=== PATIENT | female | born 1995 | race Caucasian/White ===

== ENCOUNTER 2022-04-15 07:40 | Inpatient (IN) | payer BC ==
[2022-04-15] MEDS: LACTATED RINGERS 1,000 ML IV SCH ×2 (07:50→17:29)
[2022-04-15] MEDS ORDERED: BENZOCAINE/MENTHOL SPRAY 1 GM/SPRAY AEROSOL TOPICAL PRN (08:14)
[2022-04-15] MEDS ORDERED: SIMETHICONE 80 MG CHEWABLE PO PRN (08:14)
[2022-04-15] MEDS ORDERED: diphenhydrAMINE 50 MG/ML 1 ML VIAL IVP PRN ×2 (08:14)
[2022-04-15] MEDS ORDERED: ACETAMINOPHEN TAB 325 MG TAB PO PRN (08:14)
[2022-04-15] MEDS ORDERED: HYDROCORTISONE 2.5% RECTAL CREAM 30 GM TUBE RECTAL PRN (08:14)
[2022-04-15] MEDS ORDERED: ZOLPIDEM 5 MG TAB PO PRN (08:14)
[2022-04-15] MEDS ORDERED: diphenhydrAMINE 50 MG CAP PO PRN (08:14)
[2022-04-15] MEDS ORDERED: diphenhydrAMINE 25 MG CAP PO PRN ×2 (08:14→11:35)
[2022-04-15] MEDS ORDERED: OXYTOCIN 30 UNITS/500 ML NS 30 UNIT in SALINE 1 500ML.BAG IV SCH (08:15)
[2022-04-15] MEDS ORDERED: LIDOCAINE 0.5% (PF) 5 MG/ML (50 ML SDV) SQ PRN (09:07)
--- NOTE | 2022-04-15 09:54 | P.HPOB ---
History of Present Illness H&P Date: 04/15/22 Chief Complaint: home stillborn delivery, perineal laceration the patient is a 27-year-old 1 para 0 who presents following home delivery at which time the baby was born without a pulse and resuscitative measures failed to 35 the . She did have care through a silk screen layout drafter and handed to low present. Reportedly, there were heart tones in the 120s up until just moments before delivery. The patient was questioned extensively regarding the possibility of gestational diabetes but had been checking her blood sugars at home with reportedly completely normal blood sugars. Upon presentation the hospital, there was concern for a perineal laceration. I arrived and examined the patient and initially was under the impression that she had a partial third-degree laceration. After was thought to be complete repair of the laceration, rectovaginal examination was performed and it was clearly demonstrated that this was an extensive fourth degree laceration with incomplete repair from the vaginal perspective. As a result, the patient will be taken to the operating room for better anesthesia and visualization for more complete repair. Obstetrical history: 1 para 0 with current statistics and outcomes as listed above, the infant was 8 pounds and 10 ounce female brought to the hospital without a pulse. Gynecologic history: Unremarkable with no history of any infections to include STDs. Review of Systems review of systems is confined to history of present illness. Medications and Allergies Home Medications Medication Instructions Recorded Confirmed Type No Known Home Medications 04/15/22 04/15/22 History Allergies Allergy/AdvReac Type Severity Reaction Status Date / Time No Known Allergies Allergy Verified 04/15/22 08:13 Exam Vital Signs Temp Pulse Resp BP Pulse Ox 04/15/22 07:50 97.0 F L 164 H 18 132/82 99 Intake and Output 04/14/22 04/15/22 04/15/22 22:59 06:59 14:59 Other: Weight 127.006 kg in general, this is a moderately obese white female in no acute distress. Her heart has a regular rhythm though she is somewhat tachycardic. Her lungs are clear to auscultation bilaterally in all cooper. Her abdomen is obese, nondistended, has normal active bowel sounds, soft, nontender aside from uterine fundus which is tonic and minimally tender below the umbilicus. Her 70s without any cyanosis, clubbing, or edema and are nontender to palpation bilaterally. Pelvic examination after repair confirms a fourth degree laceration which is incompletely repaired. Assessment and Plan (1) Fourth degree perineal laceration Current Visit: Yes Status: Acute Code(s): O70.3 - FOURTH DEGREE PERINEAL LACERATION DURING DELIVERY SNOMED Code(s): 059128876 Plan: in order to affect a more complete repair, the patient will be taken the operating room for repair under anesthesia were visualization will be more extensive. I have discussed with her and her significant other the risks of not proceeding in fairly rapid fashion which would primarily included fistula, and potential for infection. She has understood and agreed to proceed.
[2022-04-15] MEDS ORDERED: IV FLUID CONTINUATION 1,000 ML IV ONE (10:13)
[2022-04-15] MEDS ORDERED: fentaNYL (PF) 50 MCG/ML 2 ML AMP ONE (10:24)
[2022-04-15] MEDS ORDERED: ONDANSETRON 4 MG/2 ML VIAL ONE (10:24)
[2022-04-15] MEDS ORDERED: HYDROmorphone (PF) 1 MG/ML ONE (10:24)
[2022-04-15] MEDS ORDERED: PHENYLEPHRINE-0.9% NACL SYG 1,000 MCG/10 ML SYRINGE ONE (10:24)
[2022-04-15] MEDS ORDERED: PROPOFOL 10 MG/ML 20 ML VIAL IV ONE (10:24)
[2022-04-15] MEDS ORDERED: SUCCINYLCHOLINE CHLORIDE 200 MG/10 ML VIAL IV ONE (10:24)
[2022-04-15] MEDS ORDERED: LIDOCAINE 2% INJ 20 MG/ML (2 ML VIAL) ONE (10:24)
[2022-04-15] MEDS ORDERED: MIDAZOLAM 2 MG/2 ML VIAL ONE (10:24)
[2022-04-15] MEDS ORDERED: DEXAMETHASONE SOD PHOSPHATE 4 MG/ML 1 ML VIAL IVP ONE (10:25)
[2022-04-15] MEDS ORDERED: ONDANSETRON 4 MG/2 ML VIAL IVP ONE (10:25)
[2022-04-15] MEDS ORDERED: LACTATED RINGERS 1,000 ML IV ONE (10:53)
[2022-04-15 11:09] LABS: HCT 37.4 % (34.0-46.0); HGB 12.7 gm/dL (11.4-16.0); MCH 29.2 pg (25.0-35.0); MCHC 33.8 g/dL (31.0-37.0); MCV 86.3 fL (80.0-100.0); Mean Platelet Volume 10.6; Platelet Count 285 k/uL (150-450); RBC 4.34 m/uL (3.80-5.40); RDW 13.7 % (11.5-15.5); WBC 38.6 k/uL (3.8-10.6)
[2022-04-15] MEDS ORDERED: HYDROcodone/APAP 5-325MG 1 EACH TAB PO PRN (11:35)
[2022-04-15] MEDS ORDERED: HYDROcodone/APAP 7.5-325MG 1 EACH TAB PO PRN (11:35)
--- NOTE | 2022-04-15 11:43 | P.OP ---
Date of Procedure: 04/15/22 Preoperative Diagnosis: #1. Status post normal spontaneous vaginal delivery, stillbirth #2. Suspected extensive fourth degree perineal laceration Postoperative Diagnosis: same plus #3. third degree midline perineal laceration with a deep right lateral sulcus extension, no fourth degree perineal laceration identified Procedure(s) Performed: repair of vaginal and perineal lacerations. Anesthesia: GETA Surgeon: Henok Pabon Floor Worker Well Service #1: Tracy Alegria Estimated Blood Loss (ml): 10 IV fluids (ml): 700 Urine output (ml): 200 Pathology: none sent Condition: stable Disposition: PACU Operative Findings: under anesthesia and with adequate exposure, it became evident that there was not a fourth degree perineal laceration. Rectal examination confirmed the vaginal mucosa was intact and that in fact the laceration was a deep right lateral sulcus tear extending from a third degree laceration. Following repair, the external anal sphincter felt to be completely intact with the capsule reap proximated and the repair appeared complete and effective. Description of Procedure: the patient was prepped and draped in usual fashion after general endotracheal anesthesia was administered by the anesthesiologist. Examination under anesthesia demonstrate that there was in fact and not a defect to the rectal a rectal mucosa and that the laceration did indeed represent a third degree perineal laceration with an extension into the deep right lateral sulcus. The second-degree repair was cut with a suture scissors and the extent of the laceration and exposed. With good exposure, the lateral sulcus tear was closed from its apex with a running locking stitch of 3-0 chromic catgut to the hymeneal ring. From that point forward, the standard second-degree midline per ineal laceration was completed after having earlier reinforced the external anal sphincter with interrupted [id number] stitches of 2-0 Vicryl. After closure, the peritoneum appeared essentially normal and rectovaginal examination confirmed no involvement with the rectum. Estimated blood loss for the case was approximately 10 mL. There were no complications. All sponge, instrument, needle counts were correct. The patient tolerated the procedure well and proceeded to the recovery room in stable condition.
[2022-04-15 11:46] LABS: Band Neutrophils % 2 %; Monocytes # (M) 1.54 k/uL (0-1.0); Neutrophils % (M) 87 %; Nucleated Red Blood Cells 0 /100 WBC (0-0); Total Cells Counted 100
[2022-04-15] MEDS: IBUPROFEN 600 MG TAB PO PRN (17:31)
[2022-04-15] MEDS ORDERED: SENNOSIDES-DOCUSATE SODIUM 1 EACH TAB PO SCH (20:00)
[2022-04-16] MEDS: IBUPROFEN 600 MG TAB PO PRN (00:24)
[2022-04-16 04:02] VITALS: PULSE 108
[2022-04-16 06:54] LABS: Basophils # (A) 0.1 k/uL (0-0.2); Basophils % (A) 0 %; Eosinophils % (A) 0 %; HCT 28.2 % (34.0-46.0); Lymphocytes # (A) 3.2 k/uL (1.0-4.8); Lymphocytes % (A) 14 %; MCH 29.7 pg (25.0-35.0); MCV 87.2 fL (80.0-100.0); Mean Platelet Volume 9.4; Monocytes # (A) 0.8 k/uL (0-1.0); Monocytes % (A) 3 %; Neutrophils # (A) 18.9 k/uL (1.3-7.7); Neutrophils % (A) 82 %; Platelet Count 217 k/uL (150-450); RBC 3.23 m/uL (3.80-5.40); RDW 13.8 % (11.5-15.5); WBC 23.1 k/uL (3.8-10.6)
[2022-04-16 06:58] LABS: HGB 9.6 gm/dL (11.4-16.0)
--- NOTE | 2022-04-16 08:54 | P.DS ---
Providers Date of admission: 04/15/22 07:40 Expected date of discharge: 04/16/22 Attending physician: Aubrie Carcamo Primary care physician: Stated None - Discharge Diagnosis(es) (1) Fourth degree perineal laceration Current Visit: Yes Status: Acute Hospital Course: the patient is a 27-year-old 1 para 0 admitted at several days following her due date having had no local care, care only through a track layer head. She presented by ambulance after having a home delivery at which time the was stillborn. Both the infant and mother were transported to the hospital. I presented to examine the patient and found her to have a third degree perineal laceration was a large right sulcus tear which required proceeding to the operating room to actually close properly. This was carried out in an uncomplicated fashion. The entire time the patient was admitted, she was tachycardic between 120 and 140 beats per minute. Her white count drawn shortly after admission was noted to be 36,000. The decision was made to keep her in the hospital for observation for possible infection. She had no localizing signs and remained afebrile for the entirety of her admission. Repeat white blood cell count this morning has come down to 23,000 with continuing of no signs or localizing concerns for infection. As result, she was deemed stable for discharge and was discharged home to follow-up in my office in 2 weeks and 6 weeks. She is instructed to call for any significantly increased bleeding or foul-smelling lochia, significantly increased fever abdominal pain, perineal complaints, breast complaints, or anything else that concerned her. She was additionally instructed to have nothing in the vagina for at least 6 weeks time to include intercourse. She understood her instructions and agrees to follow up as noted above. Discharge medications included only [id number] analgesic pain medications. Maternal blood type is Rh+. Procedures: #1. Repair of third-degree perineal laceration with extension into the deep right vaginal sulcus Patient Condition at Discharge: Stable Plan - Discharge Summary New Discharge Prescriptions: No Action Vit No.179/Iron/Folic [ Tablet] Discharge Medication List Vit No.179/Iron/Folic [ Tablet] 04/15/22 [History] Follow up Appointment(s)/Referral(s): Henok Pabon MD [STAFF PHYSICIAN] - 2 Weeks Discharge Disposition: HOME SELF-CARE
[2022-04-16 08:58] VITALS: BP 121/79; RESP 16; TEMP 98.6
== END 2022-04-16 09:35 | disposition home or self-care (01) | DRG 769 ==
LOC: 4FBP 07:40
PROVIDERS: ADMIT Obstetrics & Gynecology; ATTEND Obstetrics & Gynecology
PROC: 0KQM0ZZ Repair Perineum Muscle, Open Approach (ICD-10-PCS; 2022-04-15)
PROC: 0DQR0ZZ Repair Anal Sphincter, Open Approach (ICD-10-PCS; principal; 2022-04-15 13:15)
DX: Z39.0 Encounter for care and examination of mother immediately after delivery (principal); O70.3 Fourth degree perineal laceration during delivery; Z3A.35 35 weeks gestation of pregnancy; Z37.1 Single stillbirth; Z28.310 Unvaccinated for COVID-19; Z28.21 Immunization not carried out because of patient refusal; R00.0 Tachycardia, unspecified
CPT/HCPCS: 85025; 86850; 86900; 86901; 88307

== ENCOUNTER → 2023-03-05 | Outpatient (CLI) | payer BC ==
--- NOTE | 2023-03-05 08:51 | US ---
EXAMINATION TYPE: US axilla LT DATE OF EXAM: 03/05/2023 COMPARISON: NONE CLINICAL INDICATION: Female, 27 years old with history of M79.89 OTHER SPECIFIED SOFT TISSUE DISORDER S; Pt states left axilla swelling x 2 months TECHNIQUE: Left axilla scanned with grayscale and color Doppler imaging. FINDINGS: No abnormality visualized within left axilla, normal appearing lymph node= 1.8 x 0.8 x 0.8 cm No organizing fluid collection. No suspicious mass. IMPRESSION: Normal appearing lymph node. No suspicious mass.
== END | disposition home or self-care (01) ==
LOC: RADUSWWP 08:11
PROVIDERS: ATTEND Obstetrics & Gynecology
DX: M79.89 Other specified soft tissue disorders (principal); R22.32 Localized swelling, mass and lump, left upper limb

== ENCOUNTER → 2023-06-24 | Outpatient (CLI) | payer BC ==
--- NOTE | 2023-06-24 10:27 | US ---
EXAMINATION TYPE: US axilla LT DATE OF EXAM: 06/24/2023 COMPARISON: NONE CLINICAL INDICATION: Female, 28 years old with history of R22.9 SWELLING AXILLA; LT axilla swelling a nd pain after lifting a few months ago, pain is aggravated with use and lifting TECHNIQUE: several images taken at area of concern FINDINGS: lymph node again seen from prior scan: 1.7x0.8x0.7cm, possible fluid collection vs. artifa ct noted in muscle adjacent to axilla IMPRESSION: 1. Normal-appearing lymph node is redemonstrated. Small linear band of fluid noted.
== END | disposition home or self-care (01) ==
LOC: RADUSWWP 09:42
PROVIDERS: ATTEND Obstetrics & Gynecology
DX: R22.32 Localized swelling, mass and lump, left upper limb (principal)

== ENCOUNTER 2023-07-06 00:48 | Emergency (ER) | payer BC ==
[2023-07-06 01:19] LABS: Basophils % (A) 1 %; Eosinophils # (A) 0.1 k/uL (0-0.7); Eosinophils % (A) 1 %; HCT 40.2 % (34.0-46.0); HGB 14.1 gm/dL (11.4-16.0); Lymphocytes # (A) 1.4 k/uL (1.0-4.8); Lymphocytes % (A) 19 %; MCH 29.8 pg (25.0-35.0); MCHC 35.1 g/dL (31.0-37.0); MCV 84.9 fL (80.0-100.0); Mean Platelet Volume 7.7; Monocytes # (A) 0.2 k/uL (0-1.0); Monocytes % (A) 3 %; Neutrophils # (A) 5.4 k/uL (1.3-7.7); Neutrophils % (A) 75 %; Platelet Count 239 k/uL (150-450); RBC 4.74 m/uL (3.80-5.40); RDW 12.9 % (11.5-15.5); WBC 7.3 k/uL (3.8-10.6)
[2023-07-06 01:25] VITALS: TEMP 99.3
[2023-07-06 01:35] LABS: ALT 28 U/L (4-34); AST 34 U/L (14-36); African American GFR (CKD) >90 (>60 ml/min/1.73 sqM); Albumin 4.2 g/dL (3.5-5.0); Alkaline Phosphatase 59 U/L (38-126); Anion Gap 9 mmol/L; Blood Urea Nitrogen 20 mg/dL (7-17); Carbon Dioxide 22 mmol/L (22-30); Chloride 105 mmol/L (98-107); Glucose 128 mg/dL (74-99); Non-African American GFR(CKD) >90 (>60 ml/min/1.73 sqM); Sodium 136 mmol/L (137-145); Total Bilirubin 0.7 mg/dL (0.2-1.3); Total Protein 7.5 g/dL (6.3-8.2)
[2023-07-06 01:41] LABS: Potassium 4.8 mmol/L (3.5-5.1)
[2023-07-06 02:45] LABS: Amorphous Sediment,Urine Moderate /hpf; Appearance,Urine Cloudy (Clear); Bilirubin,Urine Negative (Negative); Blood,Urine Negative (Negative); Color,Urine Colorless; Glucose,Urine (UA) Negative (Negative); Ketones,Urine Negative (Negative); Leukocyte Esterase,Urine Negative (Negative); Mucus,Urine Rare /hpf; Nitrite,Urine Negative (Negative); Protein,Urine Negative (Negative); RBC,Urine 1 /hpf (0-5); Specific Gravity,Urine 1.023 (1.001-1.035); Squamous Epithelial Cell,Urine 3 /hpf (0-4); Urobilinogen,Urine <2.0 mg/dL (<2.0); WBC,Urine 1 /hpf (0-5)
--- NOTE | 2023-07-06 03:35 | ED ---
Abdominal Pain HPI - General Chief Complaint: Abdominal Pain Stated Complaint: abd pain Time Seen by Provider: 07/06/23 03:25 Source: patient, RN notes reviewed Mode of arrival: ambulatory Limitations: no limitations - History of Present Illness Initial Comments: This is a 28-year-old female who presents to the emergency department for abdominal pain. States that when she was driving home yesterday evening, she developed sharp pain in the right lower quadrant with associated nausea. When she went home she had 4 bowel movements, however symptoms did not subside. Denies any radiation of pain into the back. Denies any urinary symptoms. Also denies any history of similar symptoms in the past. Since being here the pain has started to improve to some extent, however it is still bothersome. Pain is also worse with movement. MD Complaint: abdominal pain - Related Data Home Medications Medication Instructions Recorded Confirmed Vit No.179/Iron/Folic 04/15/22 [ Tablet] Allergies Allergy/AdvReac Type Severity Reaction Status Date / Time No Known Allergies Allergy Verified 04/15/22 10:16 Review of Systems ROS Statement: Those systems with pertinent positive or pertinent negative responses have been documented in the HPI. ROS Other: All systems not noted in ROS Statement are negative. Past Medical History Past Medical History: No Reported History History of Any Multi-Drug Resistant Organisms: None Reported Past Surgical History: Adenoidectomy, Orthopedic Surgery, Tonsillectomy Additional Past Surgical History / Comment(s): Extensive jaw surgery Past Anesthesia/Blood Transfusion Reactions: No Reported Reaction Past Psychological History: No Psychological Hx Reported Smoking Status: Never smoker Past Alcohol Use History: None Reported Past Drug Use History: None Reported - Past Family History Mother Family Medical History: Cancer Additional Family Medical History / Comment(s): ovarian General Exam Limitations: no limitations General appearance: alert, in no apparent distress Head exam: Present: atraumatic, normocephalic, normal inspection Respiratory exam: Present: normal lung sounds bilaterally. Absent: respiratory distress, wheezes, rales, rhonchi, stridor Cardiovascular Exam: Present: regular rate, normal rhythm, normal heart sounds. Absent: systolic murmur, diastolic murmur, rubs, gallop, clicks GI/Abdominal exam: Present: soft, tenderness (RLQ), normal bowel sounds. Absent: distended Neurological exam: Present: alert, oriented X3, CN II-XII intact Psychiatric exam: Present: normal affect, normal mood Skin exam: Present: warm, dry, intact, normal color. Absent: rash Course Vital Signs 07/06/23 07/06/23 00:55 04:27 Temperature 99.3 F Pulse Rate 83 79 Respiratory 16 18 Rate Blood Pressure 154/84 145/73 O2 Sat by Pulse 98 98 Oximetry Medical Decision Making - Medical Decision Making This is a 28-year-old female who presents to the emergency department for abdominal pain. Was pt. sent in by a medical professional or institution? @ -No Did you speak to anyone other than the patient for history? @ -No Did you review nursing and triage notes? @ -Yes, and I agree, it is accurate with regards to the patient's symptoms. Were old charts reviewed? @ -No Differential Diagnosis? @ -Differential Abdominal Pain Women: Appendicitis, Cholecystitis, diverticulosis, ischemic bowel, pancreatitis, hepatitis, UTI, gastroenteritis, AAA, incarcerated hernia, bowel obstruction, constipation, inflammatory bowel, hepatitis, peptic ulcer disease, splenic infarction, perforated viscus, vulvitis, ovarian torsion, PID, kidney stone, placenta abruption, this is not meant to be an all-inclusive list EKG interpreted by me (3pts min.)? @ -Not obtained X-rays interpreted by me (1pt min.)? @ -Not obtained CT interpreted by me (1pt min.)? @ -Computed tomography scan of the abdomen and pelvis obtained. My interpretation identifies no evidence of bowel wall thickening or free air. U/S interpreted by me (1pt. min.)? @ -Not obtained What testing was considered but not performed? (CT, X-rays, U/S, labs)? Why? @ -None What meds were considered but not given? Why? @ -Toradol for pain, however the patient declined. Did you discuss the management of the patient with other professionals? @ -No Did you reconcile home meds? @ -No Was smoking cessation discussed for >3mins.? @ -No Was critical care preformed (if so, how long)? @ -No Were there social determinants of health that impacted care today? How? (Homelessness, low income, unemployed, alcoholism, drug addiction, transportation, low edu. Level, literacy, decrease access to med. care, alf, rehab)? @ -No Was there de-escalation of care discussed even if they declined? (Discuss DNR or withdrawal of care, Hospice)? @ -No What co-morbidities impacted this encounter? (DM, HTN, Smoking, COPD, CAD, Cancer, CVA, Hep., AIDS, mental health diagnosis, sleep apnea, morbid obesity)? @ -None Was patient admitted / discharged? @ -Discharged. Lab work obtained and found to be unremarkable. Urinalysis negative for signs of infection. Computed tomography scan of the abdomen and pelvis obtained revealing no acute process. Her symptoms did start to improve while in the emergency department. She declined the need for any pain medication. Advised ibuprofen and Tylenol as needed for pain relief and follow- up with her primary care provider. Undiagnosed new problem with uncertain prognosis? @ -None Drug Therapy requiring intensive monitoring for toxicity (Heparin, Nitro, Insulin, Cardizem)? @ -None Were any procedures done? @ -None Diagnosis/symptom? @ -Abdominal pain Acute, or Chronic, or Acute on Chronic? @ -Acute Uncomplicated (without systemic symptoms) or Complicated (systemic symptoms)? @ -Uncomplicated Side effects of treatment? @ -None Exacerbation, Progression, or Severe Exacerbation] @ -Not applicable Poses a threat to life or bodily function? @ -No Return precautions reviewed in depth, the patient is instructed to return to the emergency department with any new, worsening, or concerning symptoms. Patient verbalized understanding. This case was discussed in detail with the attending ED physician, Dr. Myers. Presentation, findings, and treatment plan discussed in detail as well. - Lab Data Result diagrams: 07/06/23 01:07 07/06/23 01:07 Lab Results 07/06/23 07/06/23 07/06/23 Range/Units 01:07 01:07 01:12 WBC 7.3 (3.8-10.6) k/uL RBC 4.74 (3.80-5.40) m/uL Hgb 14.1 (11.4-16.0) gm/dL Hct 40.2 (34.0-46.0) % MCV 84.9 (80.0-100.0) fL MCH 29.8 (25.0-35.0) pg MCHC 35.1 (31.0-37.0) g/dL RDW 12.9 (11.5-15.5) % Plt Count 239 (150-450) k/uL MPV 7.7 Neutrophils % 75 % Lymphocytes % 19 % Monocytes % 3 % Eosinophils % 1 % Basophils % 1 % Neutrophils # 5.4 (1.3-7.7) k/uL Lymphocytes # 1.4 (1.0-4.8) k/uL Monocytes # 0.2 (0-1.0) k/uL Eosinophils # 0.1 (0-0.7) k/uL Basophils # 0.0 (0-0.2) k/uL Sodium 136 L (137-145) mmol/L Potassium 4.8 (3.5-5.1) mmol/L Chloride 105 (98-107) mmol/L Carbon Dioxide 22 (22-30) mmol/L Anion Gap 9 mmol/L BUN 20 H (7-17) mg/dL Creatinine 0.59 (0.52-1.04) mg/dL Est GFR (CKD-EPI)AfAm >90 (>60 ml/min/1.73 sqM) Est GFR (CKD-EPI)NonAf >90 (>60 ml/min/1.73 sqM) Glucose 128 H (74-99) mg/dL Calcium 9.0 (8.4-10.2) mg/dL Total Bilirubin 0.7 (0.2-1.3) mg/dL AST 34 (14-36) U/L ALT 28 (4-34) U/L Alkaline Phosphatase 59 (38-126) U/L Total Protein 7.5 (6.3-8.2) g/dL Albumin 4.2 (3.5-5.0) g/dL Urine Color Colorless Urine Appearance Cloudy H (Clear) Urine pH 8.0 (5.0-8.0) Ur Specific [place] 1.023 (1.001-1.035) Urine Protein Negative (Negative) Urine Glucose (UA) Negative (Negative) Urine Ketones Negative (Negative) Urine Blood Negative (Negative) Urine Nitrite Negative (Negative) Urine Bilirubin Negative (Negative) Urine Urobilinogen <2.0 (<2.0) mg/dL Ur Leukocyte Esterase Negative (Negative) Urine RBC 1 (0-5) /hpf Urine WBC 1 (0-5) /hpf Ur Squamous Epith Cells 3 (0-4) /hpf Amorphous Sediment Moderate H (None) /hpf Urine Mucus Rare H (None) /hpf Urine HCG, Qual (Not Detectd) 07/06/23 Range/Units 01:12 WBC (3.8-10.6) k/uL RBC (3.80-5.40) m/uL Hgb (11.4-16.0) gm/dL Hct (34.0-46.0) % MCV (80.0-100.0) fL MCH (25.0-35.0) pg MCHC (31.0-37.0) g/dL RDW (11.5-15.5) % Plt Count (150-450) k/uL MPV Neutrophils % % Lymphocytes % % Monocytes % % Eosinophils % % Basophils % % Neutrophils # (1.3-7.7) k/uL Lymphocytes # (1.0-4.8) k/uL Monocytes # (0-1.0) k/uL Eosinophils # (0-0.7) k/uL Basophils # (0-0.2) k/uL Sodium (137-145) mmol/L Potassium (3.5-5.1) mmol/L Chloride (98-107) mmol/L Carbon Dioxide (22-30) mmol/L Anion Gap mmol/L BUN (7-17) mg/dL Creatinine (0.52-1.04) mg/dL Est GFR (CKD-EPI)AfAm (>60 ml/min/1.73 sqM) Est GFR (CKD-EPI)NonAf (>60 ml/min/1.73 sqM) Glucose (74-99) mg/dL Calcium (8.4-10.2) mg/dL Total Bilirubin (0.2-1.3) mg/dL AST (14-36) U/L ALT (4-34) U/L Alkaline Phosphatase (38-126) U/L Total Protein (6.3-8.2) g/dL Albumin (3.5-5.0) g/dL Urine Color Urine Appearance (Clear) Urine pH (5.0-8.0) Ur Specific [place] (1.001-1.035) Urine Protein (Negative) Urine Glucose (UA) (Negative) Urine Ketones (Negative) Urine Blood (Negative) Urine Nitrite (Negative) Urine Bilirubin (Negative) Urine Urobilinogen (<2.0) mg/dL Ur Leukocyte Esterase (Negative) Urine RBC (0-5) /hpf Urine WBC (0-5) /hpf Ur Squamous Epith Cells (0-4) /hpf Amorphous Sediment (None) /hpf Urine Mucus (None) /hpf Urine HCG, Qual Not Detected (Not Detectd) - Radiology Data Radiology results: report reviewed, image reviewed Disposition Clinical Impression: Abdominal pain Disposition: HOME SELF-CARE Instructions (If sedation given, give patient instructions): Abdominal Pain (ED) Additional Instructions: Return to the emergency department with any new, worsening, or concerning symptoms. Alternate with ibuprofen and Tylenol as needed for pain relief. Follow up with your primary care provider in 1-2 days. Is patient prescribed a controlled substance at d/c from ED?: No Referrals: None,Stated [Primary Care Provider] - 1-2 days
--- NOTE | 2023-07-06 04:01 | CT ---
EXAM: CT Abdomen and Pelvis With Intravenous Contrast CLINICAL HISTORY: ITS.REASON CT Reason: RLQ abdominal pain TECHNIQUE: Axial computed tomography images of the abdomen and pelvis with intravenous contrast. CTDI is 41.8 mGy and DLP is 2350 mGy-cm. This CT exam was performed using one or more of the following dose reduction techniques: automated exposure control, adjustment of the mA and/or kV according to patient size, and/or use of iterative reconstruction technique. COMPARISON: No relevant prior studies available. FINDINGS: Lung bases: Unremarkable. No mass. No consolidation. ABDOMEN: Liver: Unremarkable. No mass. Gallbladder and bile ducts: Contracted gallbladder. No calcified stones. No ductal dilation. Pancreas: Unremarkable. No mass. No ductal dilation. Spleen: Mild splenomegaly. Adrenals: Unremarkable. No mass. Kidneys and ureters: Unremarkable. No solid mass. No hydronephrosis. Stomach and bowel: Unremarkable. No obstruction. No mucosal thickening. PELVIS: Appendix: No findings to suggest acute appendicitis. Bladder: Unremarkable. No mass. Reproductive: Unremarkable as visualized. ABDOMEN and PELVIS: Intraperitoneal space: Unremarkable. No free air. No significant fluid collection. Bones/joints: No acute fracture. No dislocation. Soft tissues: Unremarkable. Vasculature: Unremarkable. No abdominal aortic aneurysm. Lymph nodes: Unremarkable. No enlarged lymph nodes. IMPRESSION: No acute findings in the abdomen or pelvis. Normal appendix.
[2023-07-06 04:47] VITALS: BP 145/73; PULSE 79; RESP 18
== END 2023-07-06 04:28 | disposition home or self-care (01) ==
LOC: EC 00:48
DX: R10.9 Unspecified abdominal pain (principal)
CPT/HCPCS: 36415; 80053; 85025; 81001; 81025; 74177; 99284; Q9967

== ENCOUNTER 2024-04-09 15:53 | Inpatient (IN) | payer BC ==
[2024-04-09 16:37] LABS: Appearance,Urine Cloudy (Clear); Bacteria,Urine Few /hpf; Bilirubin,Urine Negative (Negative); Blood,Urine Negative (Negative); Color,Urine Light Yellow; Glucose,Urine (UA) 3+ (Negative); Ketones,Urine 1+ (Negative); Leukocyte Esterase,Urine Small (Negative); Mucus,Urine Rare /hpf; Nitrite,Urine Negative (Negative); PH, Urine 6.5 (5.0-8.0); Protein,Urine Trace (Negative); RBC,Urine 1 /hpf (0-5); Specific Gravity,Urine 1.023 (1.001-1.035); Squamous Epithelial Cell,Urine 6 /hpf (0-4); Urobilinogen,Urine <2.0 mg/dL (<2.0); WBC,Urine 3 /hpf (0-5)
[2024-04-09 16:43] LABS: Creatinine,Urine Random 92.2 mg/dL; Protein/Creatinine Ratio,Urine 0.087
[2024-04-09 16:45] LABS: Basophils % (A) 0 %; Eosinophils # (A) 0.1 k/uL (0-0.7); Eosinophils % (A) 1 %; HCT 38.5 % (34.0-46.0); HGB 12.7 gm/dL (11.4-16.0); Lymphocytes # (A) 1.4 k/uL (1.0-4.8); Lymphocytes % (A) 13 %; MCH 30.4 pg (25.0-35.0); MCV 92.4 fL (80.0-100.0); Mean Platelet Volume 8.8; Monocytes # (A) 0.4 k/uL (0-1.0); Monocytes % (A) 4 %; Neutrophils # (A) 8.7 k/uL (1.3-7.7); Neutrophils % (A) 81 %; Platelet Count 200 k/uL (150-450); RBC 4.17 m/uL (3.80-5.40); RDW 13.8 % (11.5-15.5); WBC 10.7 k/uL (3.8-10.6)
[2024-04-09 17:07] LABS: ALT 11 U/L (4-34); AST 16 U/L (14-36); African American GFR (CKD) >90 (>60 ml/min/1.73 sqM); Blood Urea Nitrogen 9 mg/dL (7-17); LDH 194 U/L (120-246); Non-African American GFR(CKD) >90 (>60 ml/min/1.73 sqM); Uric Acid 3.3 mg/dL (3.7-7.4)
--- NOTE | 2024-04-09 18:38 | P.HPOB ---
History of Present Illness H&P Date: 04/09/24 Chief Complaint: elevated home blood pressures, swollen feet Ms. García is a 29 year old at 37 weeks and 5 days with EDC of 04/25/2024 by LMP consistent with 8 week US who presents to triage with swollen feet, lightheadedness, and elevated home blood pressures. In triage, blood pressures are consistently elevated at 140-150/80s-90s. PIH labwork is within normal limits and urine P:C is 0.08. The has been compmlicated by intermittently elevated blood pressure from 34 weeks onward. The fetus is also estimated to be in the 91%ile for growth, based on a 35 week growth US. The patient last ate at 1330. The patient elects for a primary section gi omar a history of significant fourth degree laceration with her last delivery. The patient has also been receiving weekly surveillance given her history of 40 week IUFD. Obstetric history: 1 full-term IUFD at 40 weeks, home work-up: blood type A positive, antibody screen negative, rubella immuna, VDRL non-reactive, HBsAg negative, HIV negative, Hep C Ab non-reactive, gonorrhea negative, chlamydia negative, 1 hour GTT abnormal, 3 hour GTT wnl. GBS pending. Past Medical History Past Medical History: No Reported History History of Any Multi-Drug Resistant Organisms: None Reported Past Surgical History: Adenoidectomy, Orthopedic Surgery, Tonsillectomy Additional Past Surgical History / Comment(s): Extensive jaw surgery, vaginal repair 04/15/2022 post vag delivery Past Anesthesia/Blood Transfusion Reactions: No Reported Reaction Past Psychological History: No Psychological Hx Reported Smoking Status: Never smoker Past Alcohol Use History: None Reported Past Drug Use History: None Reported - Past Family History Mother Family Medical History: Cancer Additional Family Medical History / Comment(s): ovarian Medications and Allergies Home Medications Medication Instructions Recorded Confirmed Type Vit No.179/Iron/Folic 1 tablet PO DAILY 04/15/22 04/09/24 History [ Tablet] Allergies Allergy/AdvReac Type Severity Reaction Status Date / Time Fish Containing Products Allergy Rash/Hives Verified 04/09/24 15:57 [Fish] Exam Vital Signs Temp Pulse Resp BP Pulse Ox 04/09/24 15:56 98.3 F 92 18 148/82 97 Intake and Output 04/09/24 04/09/24 04/09/24 06:59 14:59 22:59 Other: Weight 144.242 kg Focused physical exam is performed. This is a healthy-appearing in no apparent distress. Breathing is non-labored. Abdomen is gravid and non-tender. Extremities non-tender and non-edematous. heart tones are reactive and r eassuring on NST. Results Result Diagrams: 04/09/24 16:30 04/09/24 16:30 Abnormal Lab Results - Last 24 Hours (Table) 04/09/24 04/09/24 04/09/24 Range/Units 16:18 16:30 16:30 WBC 10.7 H (3.8-10.6) k/uL Neutrophils # 8.7 H (1.3-7.7) k/uL Uric Acid 3.3 L (3.7-7.4) mg/dL Urine Appearance Cloudy H (Clear) Urine Protein Trace H (Negative) Urine Glucose (UA) 3+ H (Negative) Urine Ketones 1+ H (Negative) Ur Leukocyte Esterase Small H (Negative) Ur Squamous Epith Cells 6 H (0-4) /hpf Urine Bacteria Few H (None) /hpf Urine Mucus Rare H (None) /hpf Assessment and Plan Assessment: 29 year old at 37 weeks and 5 days with gestational hypertension, history of 40 week IUFD Plan: Admit, NPO at midnight, plan for primary elective section at 600 tomorrow morning. RN to call for BPs overnight that are 160/100 or higher. Time with Patient: Less than 30
[2024-04-10] MEDS ORDERED: METHYLERGONOVINE 0.2 MG/ML 1 ML AMP IM PRN (05:31)
[2024-04-10] MEDS ORDERED: TRANEXAMIC 1,000 MG/100ML-NACL 1,000 MG in EMPTY BAG 1 BAG IV PRN (05:31)
[2024-04-10] MEDS ORDERED: miSOPROStoL 200 MCG TAB PO PRN (05:31)
[2024-04-10] MEDS ORDERED: CARBOPROST TROMETHAMINE 250 MCG/ML 1 ML AMP IM PRN (05:31)
[2024-04-10] MEDS ORDERED: OXYTOCIN 10 UNIT/ML 1 ML VIAL IM PRN (05:31)
[2024-04-10] MEDS ORDERED: LACTATED RINGERS 1,000 ML IV SCH (05:45)
[2024-04-10 06:39] LABS: Basophils % (A) 0 %; Eosinophils # (A) 0.1 k/uL (0-0.7); Eosinophils % (A) 1 %; HCT 38.3 % (34.0-46.0); HGB 12.7 gm/dL (11.4-16.0); Lymphocytes # (A) 1.7 k/uL (1.0-4.8); Lymphocytes % (A) 17 %; MCH 30.4 pg (25.0-35.0); MCHC 33.2 g/dL (31.0-37.0); MCV 91.5 fL (80.0-100.0); Mean Platelet Volume 8.3; Monocytes # (A) 0.3 k/uL (0-1.0); Monocytes % (A) 3 %; Neutrophils # (A) 7.9 k/uL (1.3-7.7); Neutrophils % (A) 78 %; Platelet Count 206 k/uL (150-450); RBC 4.18 m/uL (3.80-5.40); RDW 13.6 % (11.5-15.5); WBC 10.1 k/uL (3.8-10.6)
[2024-04-10] MEDS: LACTATED RINGERS 1,000 ML IV ONE (06:41)
[2024-04-10] MEDS: ceFAZolin 3 GM in SODIUM CHLORIDE 0.9% 100 ML IVPB ONE (06:51)
[2024-04-10] MEDS: CITRIC ACID-SODIUM CITRATE 15 ML CUP PO ONE (06:56)
[2024-04-10] MEDS ORDERED: ONDANSETRON 4 MG/2 ML VIAL ONE (07:34)
[2024-04-10] MEDS ORDERED: OXYTOCIN 30 UNITS/500 ML NS BAG IV ONE (07:34)
[2024-04-10] MEDS ORDERED: PHENYLEPHRINE-0.9% NACL SYG 1,000 MCG/10 ML SYRINGE ONE (07:34)
[2024-04-10] MEDS ORDERED: MORPHINE SULFATE (PF) 0.3 MG/0.3 ML SYR ONE (07:34)
[2024-04-10] MEDS ORDERED: KETOROLAC 15 MG/ML 1 ML VIAL ONE (07:34)
[2024-04-10] MEDS ORDERED: ZOLPIDEM 5 MG TAB PO PRN (08:49)
[2024-04-10] MEDS ORDERED: diphenhydrAMINE 50 MG CAP PO PRN (08:49)
[2024-04-10] MEDS ORDERED: diphenhydrAMINE 50 MG/ML 1 ML VIAL IVP PRN ×2 (08:49)
[2024-04-10] MEDS ORDERED: diphenhydrAMINE 25 MG CAP PO PRN (08:49)
[2024-04-10] MEDS ORDERED: ONDANSETRON 4 MG/2 ML VIAL IVP PRN (08:49)
[2024-04-10] MEDS ORDERED: NALOXONE 0.4 MG/ML 1 ML VIAL IV PRN (08:49)
[2024-04-10] MEDS ORDERED: METOCLOPRAMIDE 5 MG/ML 2 ML VIAL IVP PRN (08:49)
--- NOTE | 2024-04-10 08:49 | P.OP ---
Date of Procedure: 04/10/24 Preoperative Diagnosis: 1. Term IUP at 37 weeks and 6 days 2. Gestational Hypertension 3. History of 40 week IUFD 4. History of significant fourth degree perineal laceration Postoperative Diagnosis: 1. Term IUP at 37 weeks and 6 days 2. Gestational Hypertension 3. History of 40 week IUFD 4. History of significant fourth degree perineal laceration 5. Thick meconium stained amniotic fluid Procedure(s) Performed: Primary Lower Transverse Section Implants: None Anesthesia: spinal Surgeon: Tracy Alegria Funeral Driver #1: Stefania Rebolledo Estimated Blood Loss (ml): 387 IV fluids (ml): 1,000 Urine output (ml): 200 (clear yellow) Pathology: none sent Condition: stable Disposition: floor Indications for Procedure: Ms. García is a 29 year old at 37 weeks and 5 days with newly diagnosed gestational hypertension. She has a history of 40 week IUFD with significant 4th degree perineal laceration. Due to this, she has elected for primary section for this delivery. The risks, benefits, and alternatives to section were discussed with the patient including risk of bleeding, infection, damage to surrounding structures including bladder /bowels/ureters, and post-operative VTE. The patient understands these risks and desires to proceed with section. Operative Findings: Thick meconium noted in amniotic fluid. Viable female infant delivered in cephalic presentation. Apgars 9/9. Weight 8 pounds and 13 ounces. Normal uterus, bilateral fallopian tubes, and ovaries. Description of Procedure: The patient was taken back to the operating room where spinal anesthesia was found to be adequate. Three grams of Ancef were given for infection prophylaxis. She was prepared and draped in the dorsal supine position with a leftward tilt. A Pfannenstiel skin incision was made with the scalpel. The incision was carried down to the fascia with a bovie. The fascia was incised and extended laterally with Saleh scissors. The superior aspect of the fascia was grasped with the Subhash clamps. The underlying rectus muscle was dissected off sharply with Saleh scissors. In a similar fashion, the inferior aspect of the fascia was elevated with Subhash clamps and the rectus muscle and pyramidalis were dissected off. Excellent hemostasis was achieved with the bovie. The rectus muscle was sep arated in the midline down to the level of the pubic symphysis. Pre-peritoneal fatty tissue was bluntly dissected to expose the peritoneum. The peritoneum was found to be free of adherent bowel and entered sharply with Saleh scissors. The peritoneal incision was extended superiorly and inferiorly to the bladder reflection with good visualization of the bladder. The bladder blade was inserted and vesicouterine peritoneum was identified. Intraabdominal survey revealed scant, clear peritoneal fluid and the thinned-out lower uterine segment. The vesicouterine peritoneum was opened with scissors and the bladder flap was developed. The bladder blade was repositioned to keep the bladder out of the operative field. The lower uterine segment was incised with a scalpel. The amniotic sac was ruptured with an Allis clamp and meconium stained fluid was noted. The uterine incision was extended bluntly with lateral and upward traction. The fetus was in cephalic presentation. The head was elevated out of the pelvis with special attention paid to avoid using the uterine incision as a fulcrum. Gentle fundal pressure was applied once the head was brought into the incision. The infant was delivered with no difficulty and was noted to be crying spontaneously. The mouth and nose were suctioned with a bulb. The cord was clamped and cut. The was handed off to the bakery demonstrator. IV oxytocin was initiated to facilitate uterine contractions. The placenta was delivered intact with manual massage of uterine fundus. The uterus was then exteriorized and the inside of the uterus was gently wiped with a lap sponge to assure complete removal of placental membranes. The uterine incision was closed with 0-Vicryl suture in a running locked fashion. A second imbricating layer was placed with 0-Vicryl. The ovaries and tubes were found to be normal. The uterus, tubes, and ovaries were then gently returned to the abdominal cavity. The abdomen was copiously suction irrigated. The uterine incision was reinspected and excellent hemostasis was noted. The fascial layer was closed with a 0-Vicryl suture. The subcutaneous tissue was reapproximated with 2-0 Plain Gut. The skin was closed with 4-0 Monocryl in a subcuticular fashion.The patient tolerated the procedure well. All the counts were correct times two. The patient was taken to the recovery room in a stable condition. A physician surgical instruments inspector was utilized for the entire procedure due to the need for tissue retraction, dissection of vital structures, prevention and management of blood loss, and reduction in overall operative and anesthesia time as is the standard of care.
[2024-04-10] MEDS: ACETAMINOPHEN TAB 500 MG TAB PO SCH (12:19)
[2024-04-10] MEDS: LACTATED RINGERS 1,000 ML IV SCH (12:23)
[2024-04-10] MEDS: IBUPROFEN 600 MG TAB PO SCH (15:08)
[2024-04-10] MEDS: KETOROLAC 15 MG/ML 1 ML VIAL IVP SCH (18:36)
[2024-04-10] MEDS: SENNOSIDES-DOCUSATE SODIUM 1 EACH TAB PO SCH (20:44)
[2024-04-11 06:59] LABS: Basophils % (A) 0 %; Eosinophils # (A) 0.1 k/uL (0-0.7); Eosinophils % (A) 1 %; HCT 36.1 % (34.0-46.0); Lymphocytes # (A) 1.4 k/uL (1.0-4.8); Lymphocytes % (A) 14 %; MCH 30.9 pg (25.0-35.0); MCHC 33.3 g/dL (31.0-37.0); MCV 92.8 fL (80.0-100.0); Mean Platelet Volume 8.3; Monocytes # (A) 0.3 k/uL (0-1.0); Monocytes % (A) 3 %; Neutrophils # (A) 8.4 k/uL (1.3-7.7); Neutrophils % (A) 80 %; Platelet Count 184 k/uL (150-450); RBC 3.89 m/uL (3.80-5.40); RDW 13.7 % (11.5-15.5); WBC 10.5 k/uL (3.8-10.6)
--- NOTE | 2024-04-11 08:07 | P.PN ---
Progress Note - Text Progress Note Date: 04/11/24 (793) Anesthesia Postop day 1 Subjective: Status Post section with Duramorph. Patient seen and examined. Doing well without complaint. VAS 0. No nausea or vomiting. Mild pruritus tolerable.. Denies fever. Gross lower extremity strength intact. Without apparent anesthetic complications. Objective: Vital signs reviewed Heart: Regular Rate Lungs: Good chest excursion Abdomen: Appears nondistended Assessment: Status post section with Duramorph postop day 1 Plan: 1. Continue current care with your medical management. Anticipated end to the duration of the Duramorph around surgery time today. You may see increased pain needs around this time. 2. This note was dictated using [facility] software. Please be advised there is a potential for misspellings or errors in locomotive pipe fitter.
--- NOTE | 2024-04-11 08:32 | P.PNOBGPC ---
Subjective - Subjective Patient reports: Reports appetite normal, Reports voiding normally, Reports pain well controlled, Reports ambulating normally : doing well, nursing well Objective - Vital Signs Latest vital signs: Vital Signs Temp Pulse Resp BP Pulse Ox 04/11/24 03:55 87 16 119/82 98 04/10/24 23:23 87 16 122/81 97 04/10/24 20:00 85 16 123/75 97 04/10/24 16:00 98.8 F 92 18 126/81 96 04/10/24 12:00 98 F 84 16 145/66 97 04/10/24 10:40 83 16 139/67 97 04/10/24 10:25 77 16 138/69 04/10/24 10:10 88 16 135/91 99 04/10/24 09:55 77 16 131/69 99 04/10/24 09:40 77 17 155/73 97 04/10/24 09:25 80 16 154/70 96 04/10/24 09:10 81 17 129/60 97 04/10/24 08:55 89 17 123/60 97 04/10/24 08:40 98 F 87 16 126/64 97 Intake and Output 04/10/24 04/11/24 04/11/24 22:59 06:59 14:59 Output Total 750 Balance -750 Output: Urine 750 Uretheral (Griggs) 300 Other: # Voids 1 - Exam Extremities: Present: normal Abdomen: Present: normal appearance, soft. Absent: distention, tenderness Incision: Present: normal, dry, intact Uterus: Present: normal, firm (The uterine fundus is tonic and minimally tender below the umbilicus.) - Labs Labs: Abnormal Lab Results - Last 24 Hours (Table) 04/11/24 Range/Units 06:40 Neutrophils # 8.4 H (1.3-7.7) k/uL Assessment and Plan (1) Status post section Current Visit: Yes Status: Acute Code(s): Z98.891 - HISTORY OF UTERINE SCAR FROM PREVIOUS SURGERY SNOMED Code(s): 700058872 Plan: Continue routine and postoperative care. I would anticipate discha rge home tomorrow pending no complications. I have encouraged the patient to ambulate in the hallways routinely.
--- NOTE | 2024-04-12 09:18 | P.DS ---
Providers Date of admission: 04/09/24 17:42 Expected date of discharge: 04/12/24 Attending physician: Henok Pabon Primary care physician: Henok Pabon - Discharge Diagnosis(es) (1) Status post section Current Visit: Yes Status: Acute Hospital Course: The patient is a 29-year-old 2 para 1-0-0-0 admitted at 37-5/7 weeks by good dating parameters. She is admitted with complaints of swelling, lightheadedness and elevated home blood pressures, generally feeling poorly. Blood pressures upon presentation were mildly elevated the laboratory workup failed to confirm any significant concern for preeclampsia. She has a history of a previous home stillbirth and this fetus has additionally been estimated to be in the 91st percentile. At her first delivery she had a significant fourth degree perineal laceration requiring repair in the operating room. As a result, she has requested delivery by primary low-transverse section. Given her findings, the decision was made to proceed with primary low-transverse section. She was taken to the operating room where she was delivered of a viable 8 pound 13 ounce baby girl with Apgars of 9 at 1 minute and 9 at 5 minutes. Her postoperative and course was unremarkable with vital signs remaining stable and her temperature was afebrile throughout. She was deemed stable for discharge on and postoperative day #2 and was discharged home to follow-up in the office in 2 weeks for an incision check and 6 weeks routinely. Discharge instructions included calling for any significantly increased bleeding or foul-smelling lochia, significantly increased fever abdominal pain, perineal complaints, breast complaints, incisional complaints, or anything else that concerned her. She was additionally instructed to have nothing in the vagina for at least 6 weeks time to include intercourse and to abstain from any heavy lifting over the same period of time. She was lastly instructed to do no driving until off of all pain medications or 2 weeks time, whichever came first. She understood all of her instructions and agrees to follow-up as noted above. Discharge medications included continued vitamins as she has opted to breast-feed. She was to primarily use [id number] analgesic pain medications but was provided with a prescription for oxycodone 5 mg, 1-2 p.o. every 6 hours as needed pain, #20 dispensed with no refills. Maternal blood type is a positive and rubella status is immune. Discharge hemoglobin and hematocrit were 12.0 and 36.1 respectively. Procedures: #1. Elective primary low-transverse section Patient Condition at Discharge: Stable Plan - Discharge Summary New Discharge Prescriptions: No Action Vit No.179/Iron/Folic [ Tablet] 1 tablet PO DAILY Discharge Medication List Vit No.179/Iron/Folic [ Tablet] 1 tablet PO DAILY 04/15/22 [History] Follow up Appointment(s)/Referral(s): Henok Pabon MD [Primary Care Provider] - 04/20/24 2:15 pm (Post appointment 05-23-2024 at 11am) Discharge Disposition: HOME SELF-CARE
[2024-04-12 09:37] VITALS: BP 136/82; PULSE 80; RESP 16; TEMP 98.2
== END 2024-04-12 11:56 | disposition home or self-care (01) | DRG 788 ==
LOC: FBPOP 15:53 → 4FBP 17:42
PROVIDERS: ADMIT Obstetrics & Gynecology; ATTEND Obstetrics & Gynecology
PROC: 10D00Z1 Extraction of Products of Conception, Low, Open Approach (ICD-10-PCS; principal; 2024-04-10 06:00)
DX: O13.4 Gestational [pregnancy-induced] hypertension without significant proteinuria, complicating childbirth (principal); O77.0 Labor and delivery complicated by meconium in amniotic fluid; O99.73 Diseases of the skin and subcutaneous tissue complicating the puerperium; L29.9 Pruritus, unspecified; Z28.310 Unvaccinated for COVID-19; Z3A.37 37 weeks gestation of pregnancy; Z37.0 Single live birth
CPT/HCPCS: 59025; 81001; 82565; 82570; 83615; 84156; 84450; 84460; 84520; 84550; 85025; 86850; 86900; 86901; 99215